=== PATIENT | male | born 1945 | race Caucasian/White ===

== ENCOUNTER 2016-11-22 15:11 | Emergency (ER) | payer OTHER ==
--- NOTE | 2016-11-22 15:53 | EDPHY ---
H & P Stated Complaint: sent from pcp for abnormal labs (high K)--diabetic-pt denies symptoms Source: Patient, Family, Old records - Personal History Current Tetanus/Diphtheria Vaccine: Unsure Current Tetanus Diphtheria and Acellular Pertussis (TDAP): Unsure - Medical/Surgical History Hx Asthma: No Hx Chronic Respiratory Disease: No Hx Diabetes: Yes Hx Cardiac Disease: No Hx Renal Disease: No Hx Cirrhosis: No Hx Alcoholism: No Hx HIV/AIDS: No Hx Splenectomy or Spleen Trauma: No Other PMH: insulin dependent diabetic. htn. hyperlipidemia - Social History Smoking Status: Current every day smoker HPI/ROS: CHIEF COMPLAINT: "potassium issue" HISTORY OF PRESENT ILLNESS: Patient reports that he is here because his primary care physician was worried about his potassium level. He thinks that his potassium was low. He has had this checked twice this week with poorly abnormal values but does not know the values. He has no complaints related to this of any kind. Specifically no muscle aches or pains. No muscle spasms. No chest pain or shortness of breath. Does have occasional lightheadedness when standing up, but he attributes to recent closed head injury on Friday that happened due to a hypoglycemic episode. He was evaluated by his physician on from this, when the potassium was reportedly abnormal. This was double checked today, and again it was reportedly abnormal. He does not know other was higher low. He was sent here for further workup. No other associated complaints or modifying factors. REVIEW OF SYSTEMS: Ten systems reviewed and are negative unless otherwise noted in the HPI PERTINENT MEDICAL HISTORY: Type 1 diabetic EXAMINATION General Appearance: Alert, no distress Head: normocephalic, atraumatic Eyes: Pupils equal and round, no conjunctival pallor or injection ENT, Mouth: Mucous membranes moist. Uvula midline. No erythema or edema. Neck: Normal inspection, supple, non-tender Respiratory: Lungs are clear to auscultation. No wheezing or rhonchi or crackles. Cardiovascular: Regular rate and rhythm. No murmur. Pulses intact distally. Gastrointestinal: Abdomen is soft and nontender Back: non-tender, no bony abnormalities Neurological: GCS 15. A&O, nonfocal, strength symmetric in all limbs, no pronator drift. Normal mental status. Skin: Warm and dry, no rash. No petechiae or purpura. Extremities: Nontender, no pedal edema Psychiatric: Mood and affect normal DIFFERENTIAL DIAGNOSES: Including but not limited to hypokalemia, hyperkalemia, electrolyte disturbance , dehydration, acute kidney injury, chronic injury, insulin reaction MDM: 3:50 p.m. Patient has no specific complaints other than mild lightheadedness when he stands up. He has been sent here by his primary care physician due to "somethnig with my potassium." Patient felt that his potassium was actually low , but he has missed her disposition. It was elevated at 5.7. I have ordered repeat chemistries to confirm, as well as an EKG. He is in no acute distress. Is placed on a chopper operator while the laboratory studies are pending. 4:25 p.m. Potassium is 5.5 mEq. Creatinine is elevated but at baseline with this EKG. He is completely asymptomatic. EKG is unremarkable. Will consult Nephrology to discuss the patient's medications and further recommendations. We are currently providing 1 L IV fluid resuscitation 4:40 p.m. I discussed the case with audiovisual technician Dr. Eduardo. We discussed the patient's medical history, potassium and creatinine. She was able to pull up the patient' s information and she reviewed. She recommends the following changes. In addition, she will arrange for her office to contact the patient for a sooner follow-up than his already scheduled January appointment. 1. Change benazepril from 40 mg once daily to 20 mg once daily. This is not definite until further recommendation 2. Change poly starting from every 3rd day to every other day. Start with an additional dose this evening, 1 dose tomorrow and then moved to every other day. 3. Recheck potassium level on Friday. 4:55 p.m. I discussed this with the patient. He voices understanding these changes. He will be discharged home after IV fluid resuscitation. He is to follow up here on Friday if unable to receive his laboratory study on Friday. He is to return for any symptoms as we discussed. He is comfortable with this plan. SUPERVISION: Patient was evaluated in conjunction with the supervising physician. Please see their note for details. (Mahin Argueta) Constitutional: Initial Vital Signs Temperature (C) 97.9 F 11/22/16 15:17 Heart Rate 59 L 11/22/16 15:17 Respiratory Rate 16 11/22/16 15:17 Blood Pressure 155/58 H 11/22/16 15:17 O2 Sat (%) 98 11/22/16 15:17 O2 Delivery Mode Room Air Allergies/Adverse Reactions: No Known Allergies Allergy (Unverified 11/22/16 15:15) Home Medications: Medication Instructions Recorded Atorvastatin Calcium 11/22/16 Clonidine 11/22/16 Verapamil 11/22/16 novoLOG 11/22/16 Medical Decision Making Other Provider: PHYSICIAN DOCUMENTATION: The patient was evaluated and managed by the Physician Manager Of Clinical. My co- signature indicates that I have reviewed this chart and I agree with the findings and plan of care as documented. I am the secondary supervising physician. (Anton Munoz) - Data Points Laboratory Results: Laboratory Results 11/22/16 15:45 11/22/16 15:45 Medications Given: Discontinued Medications Sodium Chloride (Ns) 1,000 mls @ 0 mls/hr IV ONCE ONE PRN Reason: Wide Open Stop: 11/22/16 16:28 Last Admin: 11/22/16 16:35 Dose: 1,000 mls Departure - Departure Disposition: [facility] Inpatient Acute Clinical Impression: Hyperkalemia, CKD (chronic kidney disease) Condition: Good Instructions: Hyperkalemia (ED) Additional Instructions: Following medication changes: 1. Decreased benazepril to 20 mg once daily 2. Take an additional dose of polystyrene this evening. 3. Take a dose of polystyrene tomorrow 4. Change your polystyrene to every other day 5. Repeat potassium level on Friday. Return to the ER to do so if unable to do so with the primary care physician. Referrals: ISAAC CHAVEZ [Primary Care Provider] - As per Instructions
[2016-11-22 16:00] LABS: % IMMATURE GRANULYOCYTES 0.3 % (0.0-1.1); ABSOLUTE IMMATURE GRANULOCYTES 0.03 10^3/uL (0.00-0.10); ADD DIFF? NO; ADD MORPH? NO; ADD SCAN? NO; ATYPICAL LYMPHOCYTE FLAG 0 (0-99); FRAGMENT RBC FLAG 0 (0-99); HEMATOCRIT 37.8 % (40.0-51.0); HEMOGLOBIN 12.6 g/dL (13.7-17.5); LEFT SHIFT FLG 0 (0-99); LIPEMIA HEMOLYSIS FLAG 80 (0-99); MEAN CELL HEMOGLOBIN CONCENTR. 33.3 g/dL (32.4-36.7); MEAN CELL VOLUME 92.9 fL (81.5-99.8); MEAN PLATELET VOLUME 9.4 fL (8.7-11.7); PLATELET CLUMPS FLAG 0 (0-99); PLATELET COUNT 320 10^3/uL (150-400); RED BLOOD CELL COUNT 4.07 10^6/uL (4.40-6.38)
--- NOTE | 2016-11-22 16:00 | CPEKG ---
Heart Rate: 57 RR Interval: 1053 P-R Interval: 220 QRSD Interval: 86 QT Interval: 424 QTC Interval: 413 P [place]: 24 QRS [place]: 87 T Wave [place]: 73 EKG Severity - ABNORMAL ECG - EKG Impression: SINUS RHYTHM EKG Impression: FIRST DEGREE AV BLOCK EKG Impression: BORDERLINE RIGHT AXIS DEVIATION Electronically Signed By: Anton Munoz 22-Nov-2016 17:49:33
[2016-11-22 16:13] LABS: ANION GAP 8 mEq/L (8-16); CALCIUM 9.2 mg/dL (8.5-10.4); CARBON DIOXIDE 21 mEq/l (22-31); CHLORIDE 104 mEq/L (97-110); CREATININE 2.2 mg/dL (0.7-1.3); GLOMERULAR FILTRATION RATE 30; GLUCOSE 202 mg/dL (70-100); POTASSIUM 5.5 mEq/L (3.5-5.2); SODIUM 133 mEq/L (134-144)
[2016-11-22] MEDS ORDERED: NS 1,000 ML IV ONE (16:27)
[2016-11-22 17:19] VITALS: BP 153/78; PULSE 64; RESP 17; TEMP 98.1; O2SAT 96
== END 2016-11-22 17:18 | disposition home or self-care (01) ==
DX: E87.5 Hyperkalemia (principal); I12.9 Hypertensive chronic kidney disease with stage 1 through stage 4 chronic kidney disease, or unspecified chronic kidney disease; N18.9 Chronic kidney disease, unspecified; E11.9 Type 2 diabetes mellitus without complications; F17.200 Nicotine dependence, unspecified, uncomplicated; Z79.4 Long term (current) use of insulin

== ENCOUNTER → 2016-12-27 | Outpatient (CLI) | payer OTHER | LOC: BHFA 10:30 | PROVIDERS: ATTEND Internal Medicine Cardiovascular Disease | DX: R94.31 Abnormal electrocardiogram [ECG] [EKG] (principal); I10 Essential (primary) hypertension ==

== ENCOUNTER 2017-10-01 08:53 | Emergency (ER) | payer OTHER ==
[2017-10-01] MEDS ORDERED: DIAZEPAM 5 MG/ML 1 ML SYR IVP ONE (09:38)
[2017-10-01] MEDS ORDERED: ACETAMINOPHEN 500 MG TAB PO ONE (09:39)
--- NOTE | 2017-10-01 09:43 | EDPHY ---
H & P Time Seen by Provider: 10/01/17 09:27 HPI/ROS: CHIEF COMPLAINT: Right-sided chest pain HISTORY OF PRESENT ILLNESS: 71-year-old male with diabetes presents with right- sided chest pain. He awoke at 4:00 a.m. to go to the bathroom. He stood up, tripped and fell forward. He landed directly onto his right hand and his hand struck the right side of his chest. Unable to sleep since then b/c of right sided chest pain. The pain increases with movement and with deep inspiration. No associated SOB. Blood sugar this morning 168. No other injuries. He did not hit his head; no CARDOZA or neck pain. REVIEW OF SYSTEMS: Constitutional: No fever, no chills Eyes: No visual changes ENT: No sore throat Respiratory: No cough, no shortness of breath Gastrointestinal: No nausea, no vomiting, no abdominal pain Genitourinary: no dysuria Musculoskeletal: No leg pain or swelling Skin: No rash Neurological: No headache, no weakness Psychiatric: No depression Past Medical/Surgical History: Diabetes Social History: no recent alcohol Smoking Status: Current every day smoker Physical Exam: General Appearance: Alert, pleasant Eyes: Pupils equal and round, no conjunctival pallor ENT, Mouth: Mucous membranes moist Neck: Normal inspection, nontender, range of motion without pain Respiratory: Normal inspection, right anterior chest wall tenderness, lungs are clear to auscultation Cardiovascular: Regular rate and rhythm Gastrointestinal: Abdomen is soft and nontender Neurological: A&O, nonfocal exam Skin: Warm and dry, no rash Extremities: Normal inspection, no tenderness Psychiatric: Mood and affect normal Constitutional: Initial Vital Signs Temperature (C) 36.5 C 10/01/17 08:58 Heart Rate 83 10/01/17 08:58 Respiratory Rate 17 10/01/17 08:58 Blood Pressure 141/57 H 10/01/17 08:58 O2 Sat (%) 94 10/01/17 08:58 O2 Delivery Mode Room Air Allergies/Adverse Reactions: No Known Allergies Allergy (Verified 10/01/17 08:57) Home Medications: Medication Instructions Recorded Atorvastatin Calcium 11/22/16 Clonidine 11/22/16 Verapamil 11/22/16 novoLOG 11/22/16 Aspirin 81mg (*) 10/01/17 Diazepam [Valium 5 MG (*)] 5 mg PO Q6 PRN #10 tab 10/01/17 Hydrocodone/APAP 5/325 [[place] 1 - 2 tab PO Q4H PRN #20 tab 10/01/17 5/325] Terazosin HCl 10/01/17 Medical Decision Making - Diagnostics Imaging Results: Imaging Impressions Chest X-Ray 10/01/17 09:27 Impression: 1. Nondisplaced acute fractures anterolateral right fourth and fifth ribs with old healed fractures posterior left ninth and 10th ribs. 2. Subsegmental atelectasis suspected right lung base. Imaging: I viewed and interpreted images myself ED Course/Re-evaluation: This patient presents with severe right-sided chest pain after a fall. Clinically I suspect that he has a rib fracture. Chest x-ray reveals acute fx' s of ribs 4 and 5, no PTX. Tylenol 1 g orally and Valium 2.5 mg IV given. No evidence of additional injuries on physical exam. Leukocytosis noted, most likely secondary to pain; clinically, he has no signs of infection. Creat 2.3, c/w prior creatinine. Glucose 149. Chest x-ray results discussed with the patient. He feels much better after Valium and Tylenol. Prescriptions for [place] and Valium given. Will use incentive spirometer. Return precautions given. Differential Diagnosis: Differential diagnosis includes though it is not limited to pneumonia, pneumothorax, pulmonary embolism, aortic dissection, pericarditis, acute coronary syndrome. - Data Points Laboratory Results: Laboratory Results 10/01/17 09:55 10/01/17 09:55 10/01/17 10/01/17 09:55 09:55 WBC 13.32 10^3/uL H 10^3/uL (3.80-9.50) RBC 4.05 10^6/uL L 10^6/uL (4.40-6.38) Hgb 12.9 g/dL L g/dL (13.7-17.5) Hct 38.1 % L % (40.0-51.0) MCV 94.1 fL fL (81.5-99.8) MCH 31.9 pg pg (27.9-34.1) MCHC 33.9 g/dL g/dL (32.4-36.7) RDW 14.1 % % (11.5-15.2) Plt Count 324 10^3/uL 10^3/uL (150-400) MPV 9.0 fL fL (8.7-11.7) Neut % (Auto) 86.6 % H % (39.3-74.2) Lymph % (Auto) 7.7 % L % (15.0-45.0) [place] % (Auto) 3.5 % L % (4.5-13.0) Eos % (Auto) 0.4 % L % (0.6-7.6) Baso % (Auto) 1.0 % % (0.3-1.7) Nucleat RBC Rel Count 0.0 % % (0.0-0.2) Absolute Neuts (auto) 11.54 10^3/uL H 10^3/uL (1.70-6.50) Absolute Lymphs (auto) 1.03 10^3/uL 10^3/uL (1.00-3.00) Absolute Monos (auto) 0.46 10^3/uL 10^3/uL (0.30-0.80) Absolute Eos (auto) 0.05 10^3/uL 10^3/uL (0.03-0.40) Absolute Basos (auto) 0.13 10^3/uL H 10^3/uL (0.02-0.10) Absolute Nucleated RBC 0.00 10^3/uL 10^3/uL (0-0.01) Immature Gran % 0.8 % % (0.0-1.1) Immature Gran # 0.11 10^3/uL H 10^3/uL (0.00-0.10) Sodium 140 mEq/L mEq/L (135-145) Potassium 4.5 mEq/L mEq/L (3.5-5.2) Chloride 102 mEq/L mEq/L (97-110) Carbon Dioxide 22 mEq/l mEq/l (22-31) Anion Gap 16 mEq/L mEq/L (8-16) BUN 37 mg/dL H mg/dL (7-23) Creatinine 2.3 mg/dL H mg/dL (0.7-1.3) Estimated GFR 28 Glucose 149 mg/dL H mg/dL (70-100) Calcium 8.8 mg/dL mg/dL (8.5-10.4) Medications Given: Discontinued Medications Acetaminophen (Tylenol) 1,000 mg PO EDNOW ONE Stop: 10/01/17 09:40 Last Admin: 10/01/17 09:47 Dose: 1,000 mg Diazepam (Valium) 2.5 mg IVP EDNOW ONE Stop: 10/01/17 09:39 Last Admin: 10/01/17 09:51 Dose: 2.5 mg Departure - Departure Disposition: Home, Routine, Self-Care Clinical Impression: Right rib fracture Qualifiers: Encounter type: initial encounter Rib fracture type: multiple ribs Fracture type: closed Qualified Code(s): S22.41XA - Multiple fractures of ribs, right side, initial encounter for closed fracture Condition: Good Instructions: Rib Fracture (ED) Additional Instructions: Tylenol 650 mg orally every 4 hr as needed for pain. Maximum dose is 4 g daily. [place] also has Tylenol so do not take these medications at the same time. Use the incentive spirometer as demonstrated. Take Dulcolax as needed for constipation. Magnesium citrate may help as well. Return for worsening symptoms, shortness of breath, fever or any concerns. Referrals: ISAAC CHAVEZ [Primary Care Provider] - As per Instructions Prescriptions: Diazepam [Valium 5 MG (*)] 5 mg PO Q6 PRN #10 tab PRN Reason: muscle spasm Hydrocodone/APAP 5/325 [[place] 5/325] 1 - 2 tab PO Q4H PRN #20 tab PRN Reason: Pain, Moderate
[2017-10-01 10:01] LABS: PLATELET COUNT 324 10^3/uL (150-400)
[2017-10-01 10:54] VITALS: BP 128/56; PULSE 86; RESP 18; TEMP 98.4; O2SAT 95
== END 2017-10-01 10:53 | disposition home or self-care (01) ==
DX: S22.41XA Multiple fractures of ribs, right side, initial encounter for closed fracture (principal); F17.200 Nicotine dependence, unspecified, uncomplicated; E11.9 Type 2 diabetes mellitus without complications; Z79.82 Long term (current) use of aspirin; Z79.4 Long term (current) use of insulin; W01.198A Fall on same level from slipping, tripping and stumbling with subsequent striking against other object, initial encounter
CPT/HCPCS: 71046; 96374; 99284; J3360

== ENCOUNTER → 2018-11-12 | Outpatient (CLI) | payer OTHER | LOC: FIMAGING 12:18 | PROVIDERS: ATTEND Internal Medicine Nephrology | DX: N28.9 Disorder of kidney and ureter, unspecified (principal); R33.9 Retention of urine, unspecified; R35.0 Frequency of micturition ==